=== PATIENT | male | born 1990 | race Caucasian/White ===

== ENCOUNTER 2020-12-28 21:21 | Emergency (ER) | payer BC, OTHER ==
[~2020-12-28] VITALS: Ht 180.3 cm; Wt 83.9 kg
--- NOTE | 2020-12-28 21:21 | NUR ---
[id number] FROM HOME FOR ANXIETY AFTER DOING COCAINE AND WEED, pt [id number], not in acute distress. -sob. vss .pending er provider bowen
[2020-12-28] MEDS ORDERED: LORAZEPAM INJ 2 MG/ML VIAL ONE (21:49)
[2020-12-28] MEDS: LORAZEPAM INJ 2 MG/ML VIAL IV ONE (22:02)
[2020-12-28] MEDS: IV NS 0.9% 1,000 ML BAG IV ONE (22:02)
--- NOTE | 2020-12-28 23:02 | NUR ---
Patient discharged to home in stable condition. Written and verbal after care instructions given. Patient verbalizes understanding of instruction. IV removed. Catheter intact and site benign. Pressure and 4x4 applied to site. No bleeding noted.
[2020-12-28 23:05] VITALS: BP 148/70
== END 2020-12-28 23:06 | disposition home or self-care (01) ==
LOC: ER 21:23
DX: F19.10 Other psychoactive substance abuse, uncomplicated (principal); F41.9 Anxiety disorder, unspecified; E10.9 Type 1 diabetes mellitus without complications
CPT/HCPCS: 71045; 93005 ×2; 96361; 96374; 99283; J2060; J7030